=== PATIENT | male | born 1970 | race Caucasian/White ===

== ENCOUNTER 2020-07-27 10:18 | Emergency (ER) | payer OTHER ==
[~2020-07-27] VITALS: Ht 180.3 cm; Wt 86.2 kg
[2020-07-27] MEDS ORDERED: WELLBUTRIN SR100 MG PO (10:28)
[2020-07-27] MEDS ORDERED: CELEXA 10 MG TA10 M1 PO (10:28)
[2020-07-27 11:18] LABS: ABSOLUTE NEUTROPHILS 5.4 thou/uL (1.4-8.2); BASOPHILS 0.3 % (0.0-2.0); EOSINOPHILS 0.8 % (0.0-3.0); HEMATOCRIT 45.7 % (42.0-52.0); HEMOGLOBIN 15.5 gm/dL (14.0-18.0); MCV 94.1 fL (80.0-100.0); MONOCYTES 4.2 % (1.0-8.0); PLATELET COUNT 302 thou/uL (150-400); POLYS 77.7 % (36.0-66.0); RBC 4.85 mil/uL (4.50-6.00); RDW 12.8 % (10.5-14.5); WBC 6.9 thou/uL (4.0-11.0)
[2020-07-27 11:21] LABS: ANION GAP 7 mmol/L (7-16); BUN 10 mg/dL (7-18); CALCIUM 9.1 mg/dL (8.5-10.1); CHLORIDE 99 mmol/L (98-107); CO2 29 mmol/L (21-32); GLUCOSE 107 mg/dL (74-106); POTASSIUM 4.1 mmol/L (3.5-5.1); SODIUM 135 mmol/L (136-145)
[2020-07-27 11:29] LABS: TROPONIN-I <0.06 ng/mL (<0.06)
[2020-07-27 12:21] LABS: URINE BILIRUBIN NEGATIVE (Negative); URINE BLOOD NEGATIVE (Negative); URINE CLARITY CLEAR; URINE COLOR YELLOW; URINE GLUCOSE-RANDOM* NEGATIVE (Negative); URINE KETONES NEGATIVE (Negative); URINE LEUKOCYTES-REFLEX NEGATIVE (Negative); URINE NITRITE-REFLEX NEGATIVE (Negative); URINE PROTEIN (DIPSTICK) NEGATIVE (Negative); URINE UROBILINOGEN 0.2 E.U./dl (0.2-1.0)
[2020-07-27 13:48] VITALS: BP 122/78
--- NOTE | 2020-07-28 07:02 | EKG ---
[address] [address] ELECTROCARDIOGRAM REPORT Name: MADDISON CAROLINA Room #: [facility] [id number] Admission: 07/27/20 Attend Phys: Discharge: 07/27/20 Date of : 68 Report #: [id number] [facility] ED Test Date: 2020-07-27 Test Time: 10:26:12 Pat Name: MADDISON CAROLINA Department: Room: Gender: Renewals Specialist: REBECCA : 1970 Requested By: Trip Wallace Order Number: [id number] MD: Daniel Arnold Measurements Intervals [place] Rate: 62 P: 84 [place]: 158 QRS: 90 QRSD: 97 T: 43 QT: 423 QTc: 430 Interpretive Statements Sinus rhythm Borderline right axis deviation No previous ECG available for comparison Electronically Signed On 07-28-2020 7:02:40 [employer] by Daniel Arnold [email or web address] <ELECTRONICALLY SIGNED> By: Daniel Arnold MD, [facility] 07/28/20 0702 1026 1026 Daniel Arnold MD, FACC /EPI
== END 2020-07-27 13:48 | disposition home or self-care (01) ==
LOC: ER 10:18
PROVIDERS: Nurse Practitioner
DX: R23.2 Flushing (principal); Z79.899 Other long term (current) drug therapy